=== PATIENT | male | born 1990 | race Hispanic/Latino ===

== ENCOUNTER 2016-07-18 11:52 | Outpatient (CLI) | payer OTHER | END 2016-07-18 11:53 | disposition home or self-care (01) | LOC: MADLABBHPM 11:52 | PROVIDERS: ATTEND Family Medicine | DX: Z20.2 Contact with and (suspected) exposure to infections with a predominantly sexual mode of transmission (principal) | CPT/HCPCS: 36415; 87491; 87591 ==

== ENCOUNTER 2016-08-11 20:06 | Emergency (ER) | payer BC, OTHER ==
[2016-08-11] MEDS ORDERED: Famotidine In NaCl 20 mg/50 ml Premix Bag ONE (20:08)
[2016-08-11] MEDS ORDERED: methylPREDNISolone Sod Succ/PF 125 MG/2 ML VIAL ONE (20:08)
[2016-08-11] MEDS ORDERED: diphenhydrAMINE HCl 50 MG/ML 1 ML VIAL ONE (20:08)
[2016-08-11] MEDS ORDERED: EPINEPHrine 1 MG/ML VIAL ONE (20:08)
== END 2016-08-11 21:00 | disposition home or self-care (01) ==
LOC: MADERS 20:06
DX: T63.441A Toxic effect of venom of bees, accidental (unintentional), initial encounter (principal)
CPT/HCPCS: 96365; 96372; 96375; J0171; J1200; J2930

== ENCOUNTER 2020-07-16 11:46 | Emergency (ER) | payer BC ==
[2020-07-16] MEDS ORDERED: Sulfameth/Trimethoprim DS 800-160mg TAB ONE (12:35)
[2020-07-16] MEDS ORDERED: Ibuprofen 800 MG TAB ONE (12:35)
== END 2020-07-16 12:50 | disposition home or self-care (01) ==
LOC: MADERS 11:46
DX: S30.811A Abrasion of abdominal wall, initial encounter (principal); W40.8XXA Explosion of other specified explosive materials, initial encounter
CPT/HCPCS: 99283

== ENCOUNTER 2020-09-14 15:08 | Outpatient (CLI) | payer BC | END 2020-09-14 15:09 | disposition home or self-care (01) | LOC: MADRAD 15:08 | PROVIDERS: ATTEND Family Medicine | DX: M54.5 Low back pain (principal); M43.17 Spondylolisthesis, lumbosacral region | CPT/HCPCS: 72100 ==